=== PATIENT | male | born 1985 | race Caucasian/White ===

== ENCOUNTER → 2017-06-16 | Outpatient (CLI) | payer OTHER ==
--- NOTE | 2017-06-16 10:55 | DIAGNOSTIC IMAGING REPORT ---
ABD/PELVIS WITHOUT FOR STONE CLINICAL HISTORY: 31 years-old Male presenting with right flank pain, hematuria, history of stones. TECHNIQUE: Multidetector CT of the abdomen and pelvis was performed without the use of intravenous contrast. IV contrast: None. A dose lowering technique was used consistent with the principles of ALARA (as low as reasonably achievable). COMPARISON: None. CT DOSE (mGy.cm): The estimated cumulative dose is 470.72 mGy.cm. FINDINGS: [employer] topogram: Unremarkable. Lung bases: Lungs and pleural spaces clear. Normal heart size. No pericardial or pleural effusion. Liver: Normal morphology. Normal density. Biliary: No gross biliary ductal dilatation allowing for noncontrast technique. Normal gallbladder. Pancreas: Normal noncontrast appearance. Spleen: Normal noncontrast appearance. Adrenal glands: Normal noncontrast appearance. Kidneys and ureters: Multiple bilateral nonobstructing renal calculi, the largest on the right at the upper pole measuring 2 mm and on the left in a cluster at the lower pole measuring 5 mm. Mild right pelvocaliectasis and mild dilatation of the right ureter. 3 mm obstructing calculus immediately proximal to the right ureterovesical junction. No left hydronephrosis. Left ureter nondilated. Bladder: Circumferential bladder wall thickening. Pelvic organs: Prostate and seminal vesicles normal. Multiple pelvic phleboliths noted. Bowel: Normal appendix. No bowel obstruction. Peritoneal cavity: No free fluid or intraperitoneal gas. Lymph nodes: No gross lymphadenopathy allowing for noncontrast technique. Vasculature: Normal noncontrast appearance. Abdominal wall: Normal. Musculoskeletal: Normal. IMPRESSION: 1. Obstructing 3 mm calculus immediately proximal to the right ureterovesical junction. Resultant mild right hydroureteronephrosis. 2. Bladder wall thickening may be reactive. Correlate with urinalysis to exclude cystitis. 3. Bilateral nephrolithiasis. Electronically signed by: Bossman Albright M.D. 06/16/2017 10:53 AM Dictated Date/Time: 06/16/2017 10:47 AM
== END | disposition home or self-care (01) ==
LOC: C.CTS 10:24
PROVIDERS: ATTEND Student in an Organized Health Care Education/Training Program
DX: N23 Unspecified renal colic (principal); R31.9 Hematuria, unspecified; N20.0 Calculus of kidney